=== PATIENT | male | born 1995 | race Caucasian/White ===

== ENCOUNTER 2017-06-02 16:20 | Emergency (ER) | payer SELFPAY ==
[2017-06-02 16:53] VITALS: BP 127/78
--- NOTE | 2017-06-02 17:21 | UC ---
Ear Complaint HPI - HPI Summary HPI Summary: 1. Stabbing pain in right ear, nasal and facial congestion 2. Left third finger bruising under nail bed - History of Current Complaint Chief Complaint: UCEar Stated Complaint: RIGHT EAR PAIN/LOSS OF HEARING Time Seen by Provider: 06/02/17 16:54 Hx Obtained From: Patient Onset/Duration: Gradual Onset, Lasting Days, Still Present Severity Initially: Moderate Severity Currently: Moderate Pain Intensity: 5 - 8in finger Alleviating Factors: Nothing Associated Signs/Symptoms: Positive: Hearing Loss, URI Symptoms - Allergies/Home Medications Allergies/Adverse Reactions: Allergies Allergy/AdvReac Type Severity Reaction Status Date / Time No Known Allergies Allergy Verified 06/02/17 16:53 PMH/Surg Hx/FS Hx/Imm Hx Previously Healthy: Yes - Surgical History Surgical History: Yes Surgery Procedure, Year, and Place: Appy age 13-13 yrs - Family History Known Family History: Positive: None - no reported cardiovascular issues in family lineage - Social History Occupation: Employed Full-time Lives: With Family Alcohol Use: Rare Substance Use Type: None Smoking Status (MU): Heavy Every Day Tobacco Smoker Type: Cigarettes Amount Used/How Often: 1/2 ppd Length of Time of Smoking/Using Tobacco: 3 years Have You Smoked in the Last Year: Yes Cessation Counseling: Counseled 3+Min - 10 Min - Immunization History Most Recent Influenza Vaccination: none Review of Systems Constitutional: Negative Skin: Negative Eyes: Negative ENT: Ear Ache - right, Sinus Congestion, Sinus Pain/Tenderness Respiratory: Negative Cardiovascular: Negative Gastrointestinal: Negative Genitourinary: Negative Motor: Negative Neurovascular: Negative Musculoskeletal: Arthralgia - distal third left finger pippa fracture--- worsening pain from subungal hematoma Neurological: Negative Psychological: Negative All Other Systems Reviewed And Are Negative: Yes Physical Exam Triage Information Reviewed: Yes Appearance: Well-Appearing, No Pain Distress, Well-Nourished Vital Signs: Initial Vital Signs Temp 99.0 F 06/02/17 16:50 Pulse 103 06/02/17 16:50 Resp 16 06/02/17 16:50 BP 127/78 06/02/17 16:50 Pulse Ox 100 06/02/17 16:50 Vital Signs Reviewed: Yes Eye Exam: Normal Eyes: Positive: Conjunctiva Clear ENT Exam: Normal ENT: Positive: Normal ENT inspection, Hearing grossly normal, Pharynx normal, Nasal congestion, Nasal drainage, TMs normal - left, TM bulging - right. Negative: Tonsillar swelling, Tonsillar exudate, Trismus, Muffled/hoarse voice Dental Exam: Normal Neck exam: Normal Neck: Positive: Supple, Nontender Respiratory Exam: Normal Respiratory: Positive: Chest non-tender, Lungs clear, Normal breath sounds, No respiratory distress, No accessory muscle use Cardiovascular Exam: Normal Cardiovascular: Positive: RRR, No Murmur, Pulses Normal, Brisk Capillary Refill Musculoskeletal: Positive: Strength Intact, ROM Intact, No Edema, Other: - sub ungal hematoma--left third finger Neurological: Positive: Alert, Muscle Tone Normal Psychological Exam: Normal Psychological: Positive: Normal Response To Family, Age Appropriate Behavior Skin Exam: Normal Re-Evaluation - Re-Evaluation First Eval Change: Improved - subungal hematoma release with cautery trepenation--patient reports immediate pain relief Ear Complaint Course/Dx - Course Course Of Treatment: Augmentin, nasal decongestant, dressing and splint on finger, follow with pcp prn - Differential Dx/Diagnosis Differential Diagnosis/HQI/PQRI: Otitis Externa, Otitis Media, Trauma, URI Provider Diagnoses: right serros otitis, left third finger resolved subungal hematoma Discharge - Discharge Plan Condition: Stable Disposition: HOME Prescriptions: Amoxicillin/Clavulanate TAB* [Augmentin TAB 875*] 875 mg PO BID #20 tab Patient Education Materials: Ibuprofen (By mouth), Pseudoephedrine (By mouth), Subungual Hematoma (ED), Serous Otitis Media (ED) Referrals: [facility] [place] [facility]ERRAL [Outside] - 2 Weeks
== END 2017-06-02 17:31 | disposition home or self-care (01) ==
LOC: UCCORT 16:20
DX: H65.91 Unspecified nonsuppurative otitis media, right ear (principal); S60.132A Contusion of left middle finger with damage to nail, initial encounter; X58.XXXA Exposure to other specified factors, initial encounter; F17.210 Nicotine dependence, cigarettes, uncomplicated
CPT/HCPCS: 99212; G0463

== ENCOUNTER 2018-03-02 14:52 | Emergency (ER) | payer SELFPAY ==
[2018-03-02 15:17] VITALS: BP 110/68
--- NOTE | 2018-03-02 15:34 | UC ---
Ear Complaint HPI - HPI Summary HPI Summary: Pt presents with c/o bilateral ear ache. Pt states that he wakes daily with small amount of yellow discharge from bilateral ears. - History of Current Complaint Chief Complaint: UCEar Stated Complaint: BILATERAL EAR PAIN Time Seen by Provider: 03/02/18 15:15 Hx Obtained From: Patient Onset/Duration: Gradual Onset, Lasting Days Severity Currently: None Pain Intensity: 0 Associated Signs/Symptoms: Positive: Discharge Related History: Other (Noted In Comments) - had bilateral ear tubes X 2 as a child - Allergies/Home Medications Allergies/Adverse Reactions: Allergies Allergy/AdvReac Type Severity Reaction Status Date / Time No Known Allergies Allergy Verified 03/02/18 15:17 Home Medications: Home Medications NK [No Home Medications Reported] 03/02/18 [History Confirmed 03/02/18] PMH/Surg Hx/FS Hx/Imm Hx Previously Healthy: Yes - Surgical History Surgical History: Yes Surgery Procedure, Year, and Place: Appy age 13-13 yrs - Family History Known Family History: Positive: None - no reported cardiovascular issues in family lineage, Cardiac Disease - Social History Lives: With Family Alcohol Use: Occasionally Substance Use Type: Marijuana Substance Use Comment - Amount & Last Used: few times a week Smoking Status (MU): Light Every Day Tobacco Smoker Type: Cigarettes Amount Used/How Often: < 1/2 ppd Length of Time of Smoking/Using Tobacco: 3 years Have You Smoked in the Last Year: Yes Household Exposure Type: Cigarettes - Immunization History Most Recent Influenza Vaccination: none Review of Systems Constitutional: Negative Skin: Negative Eyes: Negative ENT: Ear Ache, Other - ear discharge Respiratory: Negative Cardiovascular: Negative Gastrointestinal: Negative Genitourinary: Negative Motor: Negative Neurovascular: Negative Musculoskeletal: Negative Neurological: Negative Psychological: Negative Is Patient Immunocompromised?: No All Other Systems Reviewed And Are Negative: Yes Physical Exam Triage Information Reviewed: Yes Appearance: Well-Appearing Vital Signs: Initial Vital Signs Temp 99.1 F 03/02/18 15:13 Pulse 68 03/02/18 15:13 Resp 16 03/02/18 15:13 BP 110/68 03/02/18 15:13 Pulse Ox 99 03/02/18 15:13 Vital Signs Reviewed: Yes Eye Exam: Normal ENT Exam: Normal ENT: Positive: Normal ENT inspection, Hearing grossly normal Respiratory: Positive: No respiratory distress Musculoskeletal Exam: Normal Neurological Exam: Normal Psychological Exam: Normal Skin Exam: Normal Ear Complaint Course/Dx - Differential Dx/Diagnosis Differential Diagnosis/HQI/PQRI: Otitis Externa, Otitis Media Provider Diagnoses: bialteral ear ache. Discharge - Sign-Out/Discharge Documenting (check all that apply): Discharge/Admit/Transfer - Discharge Plan Condition: Stable Disposition: HOME Patient Education Materials: Earache (ED) Ref[place]: [facility] [place]] - If Needed No Primary Care Phys,NOPCP [Primary Care Provider] - Additional Instructions: Please follow up with your PCP or return to clinic as needed. - Billing Disposition and Condition Condition: STABLE Disposition: HOME
== END 2018-03-02 15:39 | disposition home or self-care (01) ==
LOC: UCCORT 14:52
DX: H92.03 Otalgia, bilateral (principal); F17.210 Nicotine dependence, cigarettes, uncomplicated
CPT/HCPCS: 99211; G0463

== ENCOUNTER 2019-12-21 09:38 | Emergency (ER) | payer SELFPAY ==
[2019-12-21 09:50] VITALS: BP 116/73
--- NOTE | 2019-12-21 10:03 | UC ---
Cardiac HPI - HPI Summary HPI Summary: chest pain x 1 day sudden onset since this morning, pain is mid chest 7 out of 10 , worse with coughing , laughing, better by applying pressure to his chest no cough, no sob, no diaphoresis denies any reflux / heartburn no fever, no chills, no cold symptoms - History of Current Complaint Chief Complaint: UCChestPain Stated Complaint: CHEST PAIN Time Seen by Provider: 12/21/19 09:39 Hx Obtained From: Patient Onset/Duration: Sudden Onset, Lasting Days - 1, Still Present Timing: Constant Initial Severity: Moderate Current Severity: Moderate Pain Intensity: 6 Chest Pain Location: Mid Sternal Character: Tightness Aggravating Factor(s): Other - cough Alleviating Factor(s): Nothing Associated Signs & Symptoms: Negative: Anxiety, Weakness, Dizziness, SOB, Swelling, Diaphoresis, Nausea/Vomiting, Cough - Allergy/Home Medications Allergies/Adverse Reactions: Allergies Allergy/AdvReac Type Severity Reaction Status Date / Time No Known Allergies Allergy Verified 12/21/19 09:50 PMH/Surg Hx/FS Hx/Imm Hx - Additional Past Medical History Additional PMH: ADHD, anxiety depression Respiratory History: Asthma Psychological History: Anxiety, Depression - Surgical History Surgical History: Yes Surgery Procedure, Year, and Place: Appy age 13-13 yrs - Family History Known Family History: Positive: None - no reported cardiovascular issues in family lineage, Cardiac Disease - Social History Alcohol Use: Occasionally Substance Use Type: Marijuana Substance Use Comment - Amount & Last Used: few times a week Smoking Status (MU): Light Every Day Tobacco Smoker Type: Cigarettes Amount Used/How Often: < 1/2 ppd Length of Time of Smoking/Using Tobacco: 3 years Have You Smoked in the Last Year: Yes Household Exposure Type: Cigarettes - Immunization History Most Recent Influenza Vaccination: none Review of Systems All Other Systems Reviewed And Are Negative: Yes Constitutional: Positive: Negative Skin: Positive: Negative Respiratory: Positive: Negative. Negative: Shortness Of Breath, Cough Cardiovascular: Positive: Chest Pain. Negative: Palpitations Is Patient Immunocompromised?: No Physical Exam Triage Information Reviewed: Yes Appearance: Well-Appearing, No Pain Distress, Well-Nourished Vital Signs: Initial Vital Signs Temp 98.7 F 12/21/19 09:47 Pulse 78 12/21/19 09:47 Resp 16 12/21/19 09:47 BP 116/73 12/21/19 09:47 Pulse Ox 100 12/21/19 09:47 Vital Signs Reviewed: Yes Eye Exam: Normal Eyes: Positive: Conjunctiva Clear ENT: Positive: Normal ENT inspection, Hearing grossly normal, Pharynx normal Dental Exam: Normal Neck exam: Normal Neck: Positive: Supple, Nontender Respiratory: Positive: Chest non-tender, Lungs clear, Normal breath sounds Cardiovascular: Positive: RRR, No Murmur, Pulses Normal Abdominal Exam: Normal Abdomen Description: Positive: Nontender, Soft Bowel Sounds: Positive: Present Diagnostics - EKG Cardiac Rate: NL Cardiac Rhythm: Sinus: Normal Ectopy: None ST Segment: Normal - Clinical Impression Provider Diagnosis: Chest pain Discharge ED - Sign-Out/Discharge Documenting (check all that apply): Patient Departure All imaging exams completed and their final reports reviewed: No Studies - Discharge Plan Condition: Stable Disposition: HOME Patient Education Materials: Chest Pain (ED) Forms: *Work Release Referrals: No Primary Care Phys,NOPCP [Primary Care Provider] - 7 Days Additional Instructions: normal EKG, normal vitals and exam ? pain due to esophageal spasm cont. with rest, no alcohol , no smoking, no spicy / acidic food may take Tylenol as needed for pain follow up with your pcp in one week - Billing Disposition and Condition Condition: STABLE Disposition: Home
== END 2019-12-21 10:06 | disposition home or self-care (01) ==
LOC: UCCORT 09:38
DX: R07.9 Chest pain, unspecified (principal); F90.9 Attention-deficit hyperactivity disorder, unspecified type; J45.909 Unspecified asthma, uncomplicated; F17.210 Nicotine dependence, cigarettes, uncomplicated
CPT/HCPCS: 93005; 99211; G0463

== ENCOUNTER 2020-02-01 19:50 | Emergency (ER) | payer SELFPAY ==
--- NOTE | 2020-02-01 20:52 | UC ---
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 24 yo gentleman awoke this am c/o pain and achy all over. h/a too, does not describe as wol + sore throat minimal cough no gi / gu issues No n/v/d + fever, took temp earlier today, > 102F. took ibuprofen 400mg po x 1 apprx 2 hrs ago (T here 99.1F) No sob, but does c/o burning like discomfort in chest with breathing Quit smoking apprx 3 days ago Pt examined with full PPE - History of Current Complaint Chief Complaint: UCGeneralIllness Stated Complaint: SORE THROAT, BODY ACHES, FEVER Time Seen by Provider: 02/01/20 20:34 Hx Obtained From: Patient Pain Intensity: 6 - Allergy/Home Medications Allergies/Adverse Reactions: Allergies Allergy/AdvReac Type Severity Reaction Status Date / Time No Known Allergies Allergy Verified 12/21/19 09:50 Home Medications: Home Medications Ibuprofen TAB* [Advil TAB*] 400 mg PO ONCE 02/01/20 [History Confirmed 02/01/20] PMH/Surg Hx/FS Hx/Imm Hx Previously Healthy: Yes - Surgical History Surgical History: Yes Surgery Procedure, Year, and Place: Appendectomy age 12-13 yrs - Family History Known Family History: Positive: None - no reported cardiovascular issues in family lineage, Cardiac Disease - Social History Alcohol Use: Rare Substance Use Type: Marijuana Substance Use Comment - Amount & Last Used: daily Smoking Status (MU): Former Smoker Type: Cigarettes Amount Used/How Often: < 1/2 ppd Length of Time of Smoking/Using Tobacco: 3 years Have You Smoked in the Last Year: Yes When Did the Patient Quit Smoking/Using Tobacco: January 2020 Household Exposure Type: Cigarettes - Immunization History Most Recent Influenza Vaccination: none Review of Systems All Other Systems Reviewed And Are Negative: Yes Constitutional: Positive: Fever, Fatigue Skin: Positive: Other - see hpi Eyes: Positive: Negative ENT: Positive: Sore Throat, Nasal Discharge, Other - see hpi Respiratory: Positive: Other - see hpi Cardiovascular: Positive: Other - see hpi Gastrointestinal: Positive: Other - see hpi Genitourinary: Positive: Other - see hpi Motor: Positive: Other - see hpi Neurovascular: Positive: Other - see hpi Musculoskeletal: Positive: Other: - see hpi Neurological/Mental Status: Positive: Other - see hpi Psychological: Positive: Negative Is Patient Immunocompromised?: No Physical Exam Triage Information Reviewed: Yes Appearance: Well-Nourished - sitting up, conversing in full sentances no acute distress but looks uncomfortable and tired Vital Signs Reviewed: Yes Eye Exam: Normal ENT: Positive: Pharyngeal erythema - no sores / exudates uvula midline, Nasal drainage, TM dull Neck exam: Normal Neck: Positive: Supple, Nontender, No Lymphadenopathy Respiratory Exam: Other - breath sounds full, equal without wheezing / rhonchi Respiratory: Positive: Normal breath sounds, No respiratory distress, No accessory muscle use Cardiovascular Exam: Other - HR regular, correlates with L rad pulse Cardiovascular: Positive: Pulses Normal, Brisk Capillary Refill Abdominal Exam: Normal Abdomen Description: Positive: Nontender Bowel Sounds: Positive: Present Musculoskeletal Exam: Normal - gait steady Neurological Exam: Normal - grossly nonfocal Psychological Exam: Normal - nad Skin Exam: Normal - a little diaphoretic no rash noted (including R upper shoulder) Course/Dx - Course Course Of Treatment: Acetaminophen 975mg po x 1 (advised minimal to no alchol) Influenza a/b Strep + Covid 19 sent Reviewed coa / tx plan. Questions as posed answered to the best of my ability. Discharge ED - Sign-Out/Discharge Documenting (check all that apply): Patient Departure All imaging exams completed and their final reports reviewed: No Studies - Discharge Plan Condition: Stable Disposition: HOME Patient Education Materials: Viral Syndrome (ED) Referrals: No Primary Care Phys,NOPCP [Primary Care Provider] - Additional Instructions: You have been tested for Covid 19. Please self isolate for 14 days, unless otherwise ok'd by a medical provider. Strep throat test negative. Influenza test Hydrate. Seek medical attention for worse or new problems. - Billing Disposition and Condition Condition: STABLE Disposition: Home
[2020-02-01] MEDS ORDERED: Acetaminophen TAB* 325 MG PO ONE (20:53)
[2020-02-01] MEDS ORDERED: Albuterol HFA INHALER* 8 gm MDI INH ONE (20:54)
[2020-02-01 21:14] VITALS: BP 129/65
[2020-02-01 21:28] LABS: Influenza A Molecular Negative (Negative); Influenza B Molecular Negative (Negative)
[2020-02-01] MEDS ORDERED: Amoxicillin/Clavulanate TAB* 875 MG PO ONE (21:48)
== END 2020-02-01 21:56 | disposition home or self-care (01) ==
LOC: UCCORT 19:50
DX: B34.9 Viral infection, unspecified (principal); J02.0 Streptococcal pharyngitis; R50.9 Fever, unspecified; R07.89 Other chest pain; Z20.828 Contact with and (suspected) exposure to other viral communicable diseases; Z87.891 Personal history of nicotine dependence
CPT/HCPCS: 87651; 99213; A9270-GY; G0463; U0002